=== PATIENT | female | born 1930 | race Caucasian/White ===

== ENCOUNTER → 2018-06-13 | Day surgery (SDC) | payer OTHER | END | disposition home or self-care (01) | LOC: ADM 06-09 12:30 → AMB-ENDOS 09:25 | DX: D12.2 Benign neoplasm of ascending colon (principal) ==

== ENCOUNTER 2019-06-12 09:39 | Day surgery (SDC) | payer OTHER | END 2019-06-12 13:30 | disposition home or self-care (01) | LOC: AMB-ENDOS 09:39 | DX: D12.0 Benign neoplasm of cecum (principal); K57.30 Diverticulosis of large intestine without perforation or abscess without bleeding ==